=== PATIENT | female | born 1955 ===

== ENCOUNTER 2025-04-19 08:26 | Outpatient (CLI) | payer MEDICARE, OTHER | END 2025-04-19 08:27 | disposition home or self-care (01) | LOC: SCSBT 08:26 | PROVIDERS: ATTEND Internal Medicine Sleep Medicine | DX: M81.0 Age-related osteoporosis without current pathological fracture (principal); M85.851 Other specified disorders of bone density and structure, right thigh; M85.852 Other specified disorders of bone density and structure, left thigh | CPT/HCPCS: 77080 ==